=== PATIENT | male | born 1960 | race Caucasian/White ===

== ENCOUNTER 2018-10-24 12:09 | Emergency (ER) | payer OTHER ==
[~2018-10-24] VITALS: Ht 182.9 cm; Wt 86.2 kg
[~2018-10-24 12:09] MED LIST: fentaNYL INJECTION 100 MCG/2 ML AMP ONE
--- NOTE | 2018-10-24 12:23 | ED Trauma-Multisystem ---
General Stated Complaint: FALL Source of Information: Patient, EMS History of Present Illness Date Seen by Provider: Oct 24, 2018 Time Seen by Provider: 12:10 Initial Comments PT ARRIVES VIA EMS--+ CERVICAL COLLAR IN PLACE, SITTING UPRIGHT PT WAS WORKING ON A ROOF, AND SLIPPED ON A WASP SPRAY CAN, AND FELL 12-15 FEET OFF ROOF, HITTING HIS HEAD A DOG HOUSE/PEN HE FELL CO-WORKERS REPORT + LOSS OF CONSCIOUSNESS FOR APPROXIMATELY 3 MINUTES C/O SEVERE PAIN IN LUQ--IS ONLY COMPLAINT ON ARRIVAL TO ER EMS REPORT THAT IS BEGINNING TO C/O PAIN ALL ACROSS UPPER ABDOMEN ALSO C/O LOWER BACK PAIN--MORE ON LEFT--PER EMS C/O BILATERAL RIB PAIN--PER EMS NO SHORTNESS OF BREATH, JUST HURTS TO BREATHE NO EXTREMITY PAIN NO PARESTHESIAS OR MOTOR DEFICITS TXA WAS GIVEN BY EMS NO PAIN MEDICATION GIVEN BY EMS VITALS STABLE--BP IN 150'S SYSTOLIC, HR IN 90'S. LEVEL 1 TRAUMA ACTIVATION PRIOR TO PT'S ARRIVAL 0015--DR. PATHAK HERE, CARE TURNED OVER TO HIM PCP: DR. HEIN, [facility] Allergies and Home Medications Allergies Coded Allergies: No Known Drug Allergies (Unverified , 10/24/18) Home Medications Cyclobenzaprine HCl 10 Mg Tablet, 10 MG PO Q8H Prescribed by: CHELSEA DUDLEY on 10/24/18 1339 Hydrocodone Bit/Acetaminophen 1 Tab Tab, 1-2 EACH PO Q6H PRN for PAIN-MODERATE Prescribed by: CHELSEA DUDLEY on 10/24/18 1339 Tramadol HCl 50 Mg Tablet, 50 MG PO Q4H PRN for PAIN-MODERATE Prescribed by: CHELSEA DUDLEY on 10/24/18 1339 Patient Home Medication List Home Medication List Reviewed: Yes Review of Systems Review of Systems Constitutional: no symptoms reported Eyes: No Symptoms Reported Ears: No Symptoms Reported Nose: No Symptoms Reported Mouth: No Symptoms Reported Throat: No Symptoms to Report Respiratory: No cough, No short of breath Cardiovascular: No Symptoms Reported; Denies Chest Pain, Denies Edema, Denies Lightheadedness Gastrointestinal: see HPI, abdominal pain; No nausea, No vomiting Genitourinary: no symptoms reported Musculoskeletal: see HPI Skin: no symptoms reported (MINOR ABRASION TO BACK OF HEAD) Psychiatric/Neurological: See HPI; Denies Cognitive Dysfunction, Denies Numbness, Denies Tingling, Denies Weakness Past Dzvgaaw-Xrdqnt-Uwvmad Hx Patient Social History Alcohol Use: Occasionally Uses Recreational Drug Use: No Smoking Status: Never a Smoker Immunizations Up To Date Tetanus Booster (TDap): Unknown Past Medical History Surgeries: No Respiratory: No Cardiac: No Neurological: Yes (STATES HE TAKES A PILL "FOR PREVENTION FOR DEMENTIA" ) Genitourinary: No Gastrointestinal: No Musculoskeletal: No Endocrine: No HEENT: No Cancer: No Psychosocial: No Integumentary: No Blood Disorders: No Physical Exam Vital Signs Vital Signs - First Documented 10/24/18 12:15 Temp 36.69682 Pulse 76 Resp 24 B/P (MAP) 146/99 (115) Pulse Ox 98 O2 Delivery Room Air Height, Weight, BMI Height: '" Weight: lbs. oz. kg; BMI Method: General Appearance: Other (GUARDING LUQ) Head: Other (ABRASION TO OCCIPUT) Ears, Nose, Throat: Hearing Grossly Normal, No Evidence of ENT Injury, No Dental Injury Neck: Other (IN CERVICAL COLLAR) Cardiovascular: Regular Rate, Rhythm, No Edema, No JVD, No Murmur, Normal Peripheral Pulses Respiratory: Chest Non Tender, Normal Breath Sounds, No Accessory Muscle Use, No Respiratory Distress Gastrointestinal: Guarding (MARKED GUARDING OF LUQ), Tenderness (MARKED LUQ TENDERNESS, MODERATE RUQ TENDERNESS. ) Back: No CVA Tenderness, No Vertebral Tenderness Extremity: Normal Capillary Refill, Normal Inspection, Normal Range of Motion, Non Tender, No Calf Tenderness, No Pedal Edema Neurologic/Psychiatric: Alert, Oriented x3, No Motor/Sensory Deficits, Normal Mood/Affect, light truck driver II-XII Norm as Tested Skin: Normal Color, Warm/Dry [place] Coma Score Best Eye Response ([place]): (4) Open Spontaneously Best Verbal Response ([place]): (5) Oriented Best Motor Response ([place]): (6) Obeys Commands Holiday Total: 15 Focused Exam Lactate Level 10/24/18 12:24: Lactic Acid Level 1.50 Lactic Acid Level Laboratory Tests Test 10/24/18 12:24 Lactic Acid Level 1.50 MMOL/L (0.50-2.00) Progress/Results/Core Measures Results/Orders Lab Results Laboratory Tests Test 10/24/18 12:24 10/24/18 13:47 Range/Units White Blood Count 8.5 4.3-11.0 10^3/uL Red Blood Count 5.12 4.35-5.85 10^6/uL Hemoglobin 16.0 13.3-17.7 G/DL Hematocrit 45 40-54 % Mean Corpuscular Volume 89 80-99 FL Mean Corpuscular Hemoglobin 31 25-34 PG Mean Corpuscular Hemoglobin Concent 35 32-36 G/DL Red Cell Distribution Width 12.7 10.0-14.5 % Platelet Count 285 130-400 10^3/uL Mean Platelet Volume 10.1 7.4-10.4 FL Neutrophils (%) (Auto) 54 42-75 % Lymphocytes (%) (Auto) 35 12-44 % Monocytes (%) (Auto) 10 0-12 % Eosinophils (%) (Auto) 0 0-10 % Basophils (%) (Auto) 0 0-10 % Neutrophils # (Auto) 4.6 1.8-7.8 X 10^3 Lymphocytes # (Auto) 3.0 1.0-4.0 X 10^3 Monocytes # (Auto) 0.9 0.0-1.0 X 10^3 Eosinophils # (Auto) 0.0 0.0-0.3 10^3/uL Basophils # (Auto) 0.0 0.0-0.1 10^3/uL Prothrombin Time 12.7 12.2-14.7 SEC INR Comment 0.9 0.8-1.4 Activated Partial Thromboplast Time 28 24-35 SEC Fibrinogen 375 221-496 MG/DL D-Dimer 1.77 H 0.00-0.49 UG/ML Sodium Level 141 135-145 MMOL/L Potassium Level 4.1 3.6-5.0 MMOL/L Chloride Level 106 98-107 MMOL/L Carbon Dioxide Level 21 21-32 MMOL/L Anion Gap 14 5-14 MMOL/L Blood Urea Nitrogen 18 7-18 MG/DL Creatinine 1.27 0.60-1.30 MG/DL Estimat Glomerular Filtration Rate 58 BUN/Creatinine Ratio 14 Glucose Level 91 70-105 MG/DL Lactic Acid Level 1.50 0.50-2.00 MMOL/L Calcium Level 9.7 8.5-10.1 MG/DL Corrected Calcium 9.4 8.5-10.1 MG/DL Phosphorus Level 2.4 2.3-4.7 MG/DL Magnesium Level 2.0 1.6-2.4 MG/DL Total Bilirubin 1.0 0.1-1.0 MG/DL Direct Bilirubin 0.4 H 0.0-0.3 MG/DL Indirect Bilirubin 0.6 MG/DL Aspartate Amino Transf (AST/SGOT) 32 5-34 U/L Alanine Aminotransferase (ALT/SGPT) 35 0-55 U/L Alkaline Phosphatase 66 40-136 U/L Total Creatine Kinase 383 H 30-200 U/L Myoglobin 775.0 H 10.0-92.0 NG/ML Troponin I < 0.028 <0.028 NG/ML Total Protein 7.3 6.4-8.2 GM/DL Albumin 4.4 3.2-4.5 GM/DL Triglycerides Level 84 <150 MG/DL Cholesterol Level 160 < 200 MG/DL LDL Cholesterol Direct 105 1-129 MG/DL VLDL Cholesterol 17 5-40 MG/DL HDL Cholesterol 43 40-60 MG/DL Serum Alcohol < 10 <10 MG/DL Urine Color YELLOW Urine Clarity CLEAR Urine pH 6 5-9 Urine Specific [place] 1.005 L 1.016-1.022 Urine Protein 2+ H NEGATIVE Urine Glucose (UA) NEGATIVE NEGATIVE Urine Ketones NEGATIVE NEGATIVE Urine Nitrite NEGATIVE NEGATIVE Urine Bilirubin NEGATIVE NEGATIVE Urine Urobilinogen NORMAL NORMAL MG/DL Urine Leukocyte Esterase NEGATIVE NEGATIVE Urine RBC (Auto) 1+ H NEGATIVE Urine RBC 2-5 H /HPF Urine WBC NONE /HPF Urine Squamous Epithelial Cells 0-2 /HPF Urine Crystals NONE /LPF Urine Bacteria NEGATIVE /HPF Urine Casts NONE /LPF Urine Mucus NEGATIVE /LPF Urine Culture Indicated NO Urine Opiates Screen NEGATIVE NEGATIVE Urine Oxycodone Screen NEGATIVE NEGATIVE Urine Methadone Screen NEGATIVE NEGATIVE Urine Propoxyphene Screen NEGATIVE NEGATIVE Urine Barbiturates Screen NEGATIVE NEGATIVE Ur Tricyclic Antidepressants Screen NEGATIVE NEGATIVE Urine Phencyclidine Screen NEGATIVE NEGATIVE Urine Amphetamines Screen NEGATIVE NEGATIVE Urine Methamphetamines Screen NEGATIVE NEGATIVE Urine Benzodiazepines Screen NEGATIVE NEGATIVE Urine Cocaine Screen NEGATIVE NEGATIVE Urine Cannabinoids Screen NEGATIVE NEGATIVE My Orders Orders - CHELSEA DUDLEY DO Fentanyl Injection (Sublimaze Injection (10/24/18 12:07) Ct Head/Face/Cervical Wo (10/24/18 ) Ct Thoracic/Lumbar Spine Wo (10/24/18 ) Ct Chest/Abdomen/Pelvis W (10/24/18 ) Dipht,Pertuss(Acell),Tet Adult (Boostrix (10/24/18 12:30) Fibrin Degradation Products (10/24/18 12:24) Fibrinogen (10/24/18 12:24) Protime With Inr (10/24/18 12:24) Partial Thromboplastin Time (10/24/18 12:24) Alcohol (10/24/18 12:24) Cardiac Profile 1 (10/24/18 12:24) Creatine Kinase (10/24/18 12:24) Liver Panel (10/24/18 12:24) Magnesium (10/24/18 12:24) Phosphorus (10/24/18 12:24) Lactic Acid Analyzer (10/24/18 12:24) Red Cells Leukocytes Reduced (10/24/18 12:24) Type And Screen (10/24/18 12:24) Drug Screen Stat (Urine) (10/24/18 12:26) Urinalysis (10/24/18 12:26) Cbc With Automated Diff (10/24/18 12:24) Lipid Panel (10/24/18 12:24) Myoglobin Serum (10/24/18 12:24) Fentanyl Injection (Sublimaze Injection (10/24/18 13:30) Comprehensive Metabolic Panel (10/24/18 12:24) Ekg Tracing (10/24/18 13:02) Medications Given in ED Vital Signs/I&O 10/24/18 10/24/18 10/24/18 12:15 13:49 14:24 Temp 36.57502 36.27598 Pulse 76 76 Resp 24 18 B/P (MAP) 146/99 (115) 129/83 (98) Pulse Ox 98 98 O2 Delivery Room Air Room Air Room Air Progress Progress Note : Progress Note NO DETERIORATION IN PT'S CONDITION DURING ER STAY PT ABLE TO AMBULATE OUT OF ER Initial ECG Impression Date: Oct 24, 2018 Initial ECG Impression Time: 13:02 Initial ECG Rate: 71 Initial ECG Rhythm: Normal Sinus Diagnostic Imaging Comments CXR--CANCELLED BY DR. PATHAK ? PELVIS XRAY--CANCELLED BY DR. PATHAK ? CT HEAD/ MAXILLOFACIALS / CERVICAL SPINE--NO ACUTE INJURY OR PROCESS CT THORACIC/LUMBAR SPINE--FRACTURES OF LEFT TRANSVERSE PROCESSES L1-L4. NO SPINAL CANAL INVOLVEMENT OR OTHER ACUTE PROCESS CT CHEST/ ABDOMEN/ PELVIS--FRACTURES OF LEFT TRANSVERSE PROCESSES L1-L4. NO ACUTE INTRA-ABDOMINAL PROCESS ALL PER RADIOLOGIST REPORTS Reviewed: Reviewed by Sc Departure Communication (Admissions) [id number]--SPOKE WITH DR. PATHAK, HE ADVISES TO SEND PT HOME. Impression Primary Impression: Fall from roof as cause of accidental injury Additional Impressions: MULTIPLE LEFT LUMBAR TRANSVERSE PROCESS FRACTURES Closed head injury with brief loss of consciousness Abdominal wall contusion Dlnzzabwru-jrvhjaimx-uipzyma (DPT) vaccination administered at current visit Disposition: HOME, SELF-CARE Condition: Improved Departure-Patient Inst. Referrals: MEHRAN PATHAK DO Patient Instructions: Concussion, Adult (DC), Contusion (DC), Diphtheria and Tetanus Toxoids, and Acellular Pertussis Vaccine, Fracture (DC), How to Use an Incentive Spirometer, Skin Abrasions (DC) Add. Discharge Instructions: ICE TO SORE AREAS AT 20 MINUTE INTERVALS USE INCENTIVE SPIROMETRY EVERY HOUR FOLLOW UP WITH DR. PATHAK ON FRIDAY RETURN TO ER IF SYMPTOMS WORSEN Scripts Hydrocodone Bit/Acetaminophen (Hydrocodone/Acetaminophen 5/325mg Tablet) 1 Tab Tab 1-2 EACH PO Q6H PRN for PAIN-MODERATE MDD 10 for 3 Days, #20 TAB Prov: CHELSEA DUDLEY DO 10/24/18 Tramadol HCl (Ultram) 50 Mg Tablet 50 MG PO Q4H PRN for PAIN-MODERATE for 3 Days, TAB Prov: CHELSEA DUDLEY DO 10/24/18 Cyclobenzaprine HCl (Cyclobenzaprine HCl) 10 Mg Tablet 10 MG PO Q8H, #15 TAB Prov: CHELSEA DUDLEY DO 10/24/18 CHELSEA DUDLEY DO Oct 24, 2018 12:23
[2018-10-24] MEDS ORDERED: TETANUS,DIPTH,PERTUSS P/F (BOOSTRIX) 0.5 ML VIAL IM ONE (12:30)
[2018-10-24 12:32] LABS: BASOPHILS % (AUTO) 0 % (0-10); EOSINOPHILS % (AUTO) 0 % (0-10); HEMATOCRIT 45 % (40-54); LYMPHOCYTES % (AUTO) 35 % (12-44); MEAN CORPUSCULAR HEMOGLOBIN 31 PG (25-34); MEAN CORPUSCULAR HGB CONC 35 G/DL (32-36); MEAN CORPUSCULAR VOLUME 89 FL (80-99); MEAN PLATELET VOLUME 10.1 FL (7.4-10.4); MONOCYTES # (AUTO) 0.9 X 10^3 (0.0-1.0); MONOCYTES % (AUTO) 10 % (0-12); NEUTROPHILS # (AUTO) 4.6 X 10^3 (1.8-7.8); NEUTROPHILS % (AUTO) 54 % (42-75); PLATELET COUNT 285 10^3/uL (130-400); RED CELL DISTRIBUTION WIDTH 12.7 % (10.0-14.5); WHITE BLOOD COUNT 8.5 10^3/uL (4.3-11.0)
[2018-10-24 12:42] LABS: FIBRIN DEGRADATION PRODUCTS 1.77 UG/ML (0.00-0.49); INR 0.9 (0.8-1.4); PROTHROMBIN TIME PATIENT 12.7 SEC (12.2-14.7)
[2018-10-24 12:49] LABS: ALANINE AMINOTRANSFERASE 35 U/L (0-55); ALBUMIN 4.4 GM/DL (3.2-4.5); ALKALINE PHOSPHATASE 66 U/L (40-136); BILIRUBIN,DIRECT 0.4 MG/DL (0.0-0.3); BILIRUBIN,INDIRECT 0.6 MG/DL; CHOLESTEROL 160 MG/DL (< 200); CREATINE KINASE 383 U/L (30-200); HDL CHOLESTEROL 43 MG/DL (40-60); PHOSPHORUS 2.4 MG/DL (2.3-4.7); TOTAL PROTEIN 7.3 GM/DL (6.4-8.2); TRIGLYCERIDES 84 MG/DL (<150); VLDL CHOLESTEROL 17 MG/DL (5-40)
--- NOTE | 2018-10-24 12:49 | Diagnostic Imaging Report ---
PROCEDURE: CT head, face, and cervical spine without contrast. TECHNIQUE: Multiple contiguous axial images were obtained through the head, neck, and facial bones without the use of intravenous contrast. Sagittal and coronal reformations through the cervical spine and facial bones were also performed. Auto Exposure Controls were utilized during the CT exam to meet ALARA standards for radiation dose reduction. INDICATION: Fall from 15 feet. Loss of consciousness. COMPARISON: None. FINDINGS: CT head: The ventricles and cortical sulci are age-appropriate. There is no midline shift or mass-effect. No acute intracranial hemorrhage is seen. There is no CT evidence of acute territorial ischemia. No focal masses or collections are present. The calvarium is intact. CT face: No acute facial fractures are identified. The mandible, zygomatic arches, and pterygoid plates are intact. The bilateral TMJ demonstrate normal articulation. The nasal bones and bony nasal septum demonstrate no acute fracture. A small mucus retention cyst is seen in the left maxillary sinus. Otherwise, the paranasal sinuses and mastoid air cells are well pneumatized. CT cervical spine: No acute fracture or dislocation is seen in the cervical spine. No focal osseous lesions. Vertebral body heights are well-maintained. The craniocervical junction is well-maintained. Mild degenerative changes are seen in the cervical spine with disc osteophyte complexes and uncovertebral arthropathy. Soft tissues of the neck are unremarkable. IMPRESSION: 1. No hemorrhage or focal intra-axial mass. No CT evidence of large acute territorial ischemia. 2. No acute fracture or dislocation in the cervical spine. 3. No acute facial fractures. Dictated by: Dictated on workstation # [id number]
--- NOTE | 2018-10-24 13:02 | Diagnostic Imaging Report ---
PROCEDURE: CT thoracic and lumbar spine without contrast. TECHNIQUE: Multiple contiguous axial images were obtained through the thoracic and lumbar spine without the use of intravenous contrast. Sagittal and coronal reformations were then performed. INDICATION: Fall from 15 feet. Back pain. COMPARISON: None. FINDINGS: Minimally displaced fractures are seen involving the left transverse processes of L1 through L4. No vertebral body fractures or dislocation are identified. Vertebral body heights are well-maintained in the thoracic and lumbar spine. No evidence of displaced rib fracture is seen. Alignment is anatomic in the thoracic and lumbar spine. No focal osseous lesions. Please see the separately dictated report on the CT chest, abdomen and pelvis for soft tissue findings. IMPRESSION: Minimally displaced fractures involving the left transverse processes of L1 through L4. No vertebral body fractures or dislocation in the thoracic and lumbar spine. Alignment is anatomic. Dictated by: Dictated on workstation # [id number]
--- NOTE | 2018-10-24 13:15 | Diagnostic Imaging Report ---
PROCEDURE: CT chest, abdomen, and pelvis with contrast. TECHNIQUE: Multiple contiguous axial images were obtained through the chest, abdomen, and pelvis after the administration of intravenous contrast. Auto Exposure Controls were utilized during the CT exam to meet ALARA standards for radiation dose reduction. INDICATION: Fall from 15 feet. Left-sided abdominal pain. COMPARISON: None. CT chest: The heart size is within normal limits. No pericardial effusion is present. The thoracic aorta is unremarkable without evidence of aneurysm or dissection. No pulmonary emboli are seen. There is no mediastinal, hilar, or axillary lymphadenopathy. Minimal dependent atelectasis is present in the lung bases. No focal consolidation or mass. No suspicious pulmonary nodules. No central endobronchial obstructing lesions. No pleural effusion or pneumothorax. The osseous structures demonstrate degenerative changes without focal lytic or blastic lesions. CT abdomen: The liver, spleen, pancreas, adrenal glands, and kidneys have a normal appearance. There is no pathologically enlarged mesenteric or retroperitoneal adenopathy. The bowel loops are nondilated. The appendix is visualized in the right lower quadrant has a normal appearance. There is no free fluid or free air. There is calcified aortic and iliac atherosclerotic plaque. Focal outpouching is seen in the proximal left common iliac artery measuring 0.7 x 0.7 cm (image 87, series 2). No evidence of dissection. Again noted are fractures involving the first through fourth left transverse processes. No other acute fractures are identified in the abdomen and pelvis. Ureters and bladder are grossly normal. There is no free air, loculated collection, or adenopathy in the pelvis. IMPRESSION: 1. No pneumothorax or pleural effusion in the chest. No pulmonary lacerations. No acute displaced rib fractures. 2. No free fluid or free air in the abdomen and pelvis. No evidence of bowel obstruction or solid organ injury. 3. 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 This represents an incidental finding and can be followed with CTA abdomen and pelvis in 6-12 months. 4. Fractures involving the first through fourth left transverse processes. No other acute fractures are visualized. Dictated by: Dictated on workstation # [id number]
[2018-10-24] MEDS ORDERED: fentaNYL INJECTION 100 MCG/2 ML AMP IVP ONE (13:30)
[2018-10-24] MEDS ORDERED: ACHD5005 PO (13:39)
[2018-10-24] MEDS ORDERED: TRAM-42 PO (13:39)
[2018-10-24] MEDS ORDERED: CYCL10TA9 PO (13:39)
--- NOTE | 2018-10-24 13:40 | Consultation - Surgery ---
History of Present Illness History of Present Illness Patient Consulted On(saadia/time) 10/24/18 13:32 Time Seen by Provider: 12:14 History of Present Illness Type I Trauma Activation, Pt fell 15 feet off of roof. I arrived in ER shortly after pt did. HPI per ED: PT ARRIVES VIA EMS--+ CERVICAL COLLAR IN PLACE, SITTING UPRIGHT PT WAS WORKING ON A ROOF, AND SLIPPED ON A WASP SPRAY CAN, AND FELL 12-15 FEET OFF ROOF, HITTING HIS HEAD A DOG HOUSE/PEN HE FELL CO-WORKERS REPORT + LOSS OF CONSCIOUSNESS FOR APPROXIMATELY 3 MINUTES,C/O SEVERE PAIN IN LUQ--IS ONLY COMPLAINT ON ARRIVAL TO ER EMS REPORT THAT IS BEGINNING TO C/O PAIN ALL ACROSS UPPER ABDOMEN, ALSO C/O LOW ER BACK PAIN--MORE ON LEFT--PER EMS C/O BILATERAL RIB PAIN--PER EMS, NO SHORTNESS OF BREATH, JUST HURTS TO BREATHE, NO EXTREMITY PAIN, NO PARESTHESIAS OR MOTOR DEFICITS TXA WAS GIVEN BY EMS NO PAIN MEDICATION GIVEN BY EMS VITALS STABLE--BP IN 150'S SYSTOLIC, HR IN 90'S. LEVEL 1 TRAUMA ACTIVATION PRIOR TO PT'S ARRIVAL In the ER pt's main complaint was of LUQ and EMS stated it was getting worse during the ride and he was guarding. Pt also complained of some low back pain, denied head pain. + LOC "I was told for 2-3 minutes". Pt rated abdominal pain as 10 out of 10. Pt was moving all 4 extremities. Allergies and Home Medications Allergies Coded Allergies: No Known Drug Allergies (Unverified , 10/24/18) Patient Home Medication List Home Medication List Reviewed: Yes Past Njrlmhi-Nthrxn-Ucxwag Hx Patient Social History Alcohol Use: Occasionally Uses Recreational Drug Use: No Smoking Status: Never a Smoker 2nd Hand Smoke Exposure: No Recent Foreign Travel: No Contact w/Someone Who Travel: No Recent Infectious Disease Expo: No Recent Hopitalizations: No Immunizations Up To Date Tetanus Booster (TDap): Unknown Seasonal Allergies Seasonal Allergies: No Surgeries History of Surgeries: No Surgeries: Vasectomy Respiratory History of Respiratory Disorde: No Cardiovascular History of Cardiac Disorders: No Cardiac Disorders: Hypertension Neurological History of Neurological Disord: Yes (STATES HE TAKES A PILL "FOR PREVENTION FOR DEMENTIA" ) Genitourinary History of Genitourinary Disor: No Gastrointestinal History of Gastrointestinal Di: No Musculoskeletal History of Musculoskeletal Dis: No Endocrine History of Endocrine Disorders: No HEENT History of HEENT Disorders: No Cancer History of Cancer: No Psychosocial History of Psychiatric Problem: No Integumentary History of Skin or Integumenta: No Blood Transfusions History of Blood Disorders: No Family Medical History Significant Family History: Hypertension Review of Systems-General Constitutional: No chills, No diaphoresis, No dizziness, No weakness EENTM: No blurred vision, No mouth pain, No mouth swelling, No epistaxis Respiratory: No cough, No dyspnea on exertion, No hemoptysis, No short of breath Cardiovascular: No chest pain, No edema, No palpitations Gastrointestinal: abdominal pain (LUQ); No jaundice, No nausea, No vomiting Genitourinary: No dysuria, No frequency, No hematuria Musculoskeletal: back pain, muscle pain, muscle stiffness Skin: No change in color, No change in hair/nails Psychiatric/Neurological: Denies Anxiety, Denies Depressed, Denies Seizure, Denies Tremors Other Pt denies any abnormal bleeding or bruising Physical Exam-General Problems Physical Exam Vital Signs Capillary Refill : General Appearance: WD/WN, moderate distress Eyes: Bilateral Eye PERRL, Bilateral Eye EOMI HEENT: pharynx normal; No scleral icterus (R), No scleral icterus (L); other (abrasion posterior head) Neck: supple, other (C-collar in place) Respiratory: chest non-tender, lungs clear, normal breath sounds, no respiratory distress, no accessory muscle use Cardiovascular: regular rate, rhythm, no murmur Gastrointestinal: normal bowel sounds, soft, no organomegaly, no pulsatile mass, guarding (voluntary LUQ), tenderness (LUQ), hernia (umbilical) Back: CVA tenderness (L), vertebral tenderness (lumbar region) Extremities: normal range of motion, non-tender, no pedal edema, no calf tenderness, normal capillary refill 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, no motor/sensory deficits, alert, normal mood/affect, oriented x 3 Skin: normal color, warm/dry Lymphatic: no adenopathy (neck, axilla or groin) Data Review Labs Laboratory Tests 10/24/18 12:24: White Blood Count 8.5, Red Blood Count 5.12, Hemoglobin 16.0, Hematocrit 45, Mean Corpuscular Volume 89, Mean Corpuscular Hemoglobin 31, Mean Corpuscular Hemoglobin Concent 35, Red Cell Distribution Width 12.7, Platelet Count 285, Mean Platelet Volume 10.1, Neutrophils (%) (Auto) 54, Lymphocytes (%) (Auto) 35, Monocytes (%) (Auto) 10, Eosinophils (%) (Auto) 0, Basophils (%) (Auto) 0, Neutrophils # (Auto) 4.6, Lymphocytes # (Auto) 3.0, Monocytes # (Auto) 0.9, Eosinophils # (Auto) 0.0, Basophils # (Auto) 0.0, Prothrombin Time 12.7, INR Comment 0.9, Activated Partial Thromboplast Time 28, Fibrinogen 375, D-Dimer 1.77H, Lactic Acid Level 1.50, Phosphorus Level 2.4, Magnesium Level 2.0, Total Bilirubin 1.0, Direct Bilirubin 0.4H, Indirect Bilirubin 0.6, Aspartate Amino Transf (AST/SGOT) 32, Alanine Aminotransferase (ALT/SGPT) 35, Alkaline Phosphatase 66, Total Creatine Kinase 383H, Myoglobin 775.0H, Troponin I < 0.028, Total Protein 7.3, Albumin 4.4, Triglycerides Level 84, Cholesterol Level 160, LDL Cholesterol Direct 105, VLDL Cholesterol 17, HDL Cholesterol 43, Serum Alcohol < 10 Assessment/Plan Assessment/Plan Assessment/Plan Trauma Type I activation, fall from 15 feet Concussion with LOC L1-L4 Left transverse process Fx I went with pt to CT scanner and looked at films; no solid organ injury. Pt did have some transverse process fractures. Pt can be sent home with IS, Neuro checks for 10 hours and pain meds. No need for surgical intervention at this time. Pt can follow up in my clinic if needed. MEHRAN PATHAK DO Oct 24, 2018 13:40
[2018-10-24 13:57] LABS: BILIRUBIN,URINE NEGATIVE (NEGATIVE); CLARITY,URINE CLEAR; COLOR,URINE YELLOW; GLUCOSE, URINE (UA) NEGATIVE (NEGATIVE); KETONES,URINE NEGATIVE (NEGATIVE); LEUKOCYTE ESTERASE ,URINE NEGATIVE (NEGATIVE); NITRITE,URINE NEGATIVE (NEGATIVE); PH,URINE 6 (5-9); PROTEIN,URINE 2+ (NEGATIVE); UROBILINOGEN,URINE NORMAL (NORMAL)
[2018-10-24 14:06] LABS: BACTERIA,URINE NEGATIVE /HPF; SQUAMOUS EPITHELIAL CELL,UR 0-2 /HPF
[2018-10-24 14:13] LABS: AMPHETAMINE SCREEN, URINE NEGATIVE (NEGATIVE); BARBITURATE SCREEN URINE NEGATIVE (NEGATIVE); BENZODIAZEPINES SCREEN URINE NEGATIVE (NEGATIVE); CANNABINOID SCREEN, URINE NEGATIVE (NEGATIVE); COCAINE SCREEN URINE NEGATIVE (NEGATIVE); METHADONE STAT NEGATIVE (NEGATIVE); METHAMPHETAMINE SCREEN URINE S NEGATIVE (NEGATIVE); OPIATE SCREEN URINE NEGATIVE (NEGATIVE); OXYCODONE STAT NEGATIVE (NEGATIVE); PROPOXYPHENE STAT NEGATIVE (NEGATIVE); TRICYCLIC ANTIDEPRESSANTS SCRE NEGATIVE (NEGATIVE)
--- NOTE | 2018-10-24 14:20 | NUR ---
Pt arrived to ED via EMS at 1210. 1 liter NS running upon arrival. Pt has bilat hand 18 guage IV's. Pt fell approx 10 feet from roof and reportedly hit head on dog pen. Pt guarding RUQ and LUQ. Pt c/o pain upon inspiration. ETCO2 [address] pt log rolled by Dr. Ureña and staff, no cervical/spine pain noted 1215 warm LR started by Adelaida RN 1217 75 mcg fentanyl given by house sup [address]
[2018-10-24 14:24] VITALS: BP 129/83
[2018-10-24 14:40] LABS: BUN/CREATININE RATIO 14; CALCIUM 9.7 MG/DL (8.5-10.1); CARBON DIOXIDE 21 MMOL/L (21-32); CHLORIDE 106 MMOL/L (98-107); CREATININE SERUM 1.27 MG/DL (0.60-1.30); GFR ESTIMATED 58; GLUCOSE 91 MG/DL (70-105); POTASSIUM 4.1 MMOL/L (3.6-5.0); SODIUM 141 MMOL/L (135-145)
== END 2018-10-24 14:24 | disposition home or self-care (01) ==
LOC: EDUNIT# 12:09 → ER 12:10
DX: S06.0X1A Concussion with loss of consciousness of 30 minutes or less, initial encounter (principal); S32.018A Other fracture of first lumbar vertebra, initial encounter for closed fracture; S32.048A Other fracture of fourth lumbar vertebra, initial encounter for closed fracture; S30.1XXA Contusion of abdominal wall, initial encounter; F03.90 Unspecified dementia, unspecified severity, without behavioral disturbance, psychotic disturbance, mood disturbance, and anxiety; R40.2142 Coma scale, eyes open, spontaneous, at arrival to emergency department; R40.2252 Coma scale, best verbal response, oriented, at arrival to emergency department; R40.2362 Coma scale, best motor response, obeys commands, at arrival to emergency department; Z23 Encounter for immunization; W13.2XXA Fall from, out of or through roof, initial encounter
CPT/HCPCS: 36415; 70450; 70486; 71260; 72125; 72128; 72131; 74177; 80053; 80061; 80076; 80306; 80320; 81000; 82550; 83605; 83735; 83874; 84100; 84484; 85025; 85379; 85384; 85610; 85730; 86850; 86900; 86901; 86920; 90471; 90715; 93005; 96374

== ENCOUNTER → 2019-05-04 | Outpatient (CLI) | payer OTHER ==
[~2019-05-04] MED LIST changes: +ACHD5005 PO; +CYCL10TA9 PO; +TRAM-42 PO; -fentaNYL INJECTION 100 MCG/2 ML AMP ONE
--- NOTE | 2019-05-04 08:34 | Diagnostic Imaging Report ---
PROCEDURE: CT abdomen and pelvis without contrast. TECHNIQUE: Multiple contiguous axial images were obtained through the abdomen and pelvis without the use of intravenous contrast. Auto Exposure Controls were utilized during the CT exam to meet ALARA standards for radiation dose reduction. 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 Asymptomatic. COMPARISON: 10/24/2018. FINDINGS: The heart is unremarkable. The included lung bases are clear. Given the noncontrast exam, evaluation of the previously visualized aneurysmal dilation of the proximal left common iliac artery is suboptimal. However, this appears largely unchanged with evidence of impending rupture. No new aneurysmal dilation is seen in the abdominal aorta or right iliac artery. Scattered calcified atherosclerotic plaque is again noted. The liver, spleen, pancreas, adrenal glands, and kidneys have a normal noncontrast CT appearance. There is no pathologically enlarged mesenteric or retroperitoneal adenopathy. The bowel loops are nondilated. The appendix is visualized in the right lower quadrant and has a normal appearance. There is no free fluid or free air. There has been interval healing of the fractures of the 1st through 4th left transverse processes in the lumbar spine. No acute osseous abnormalities. The bladder is nondistended. There is no free air, loculated collection, or adenopathy in the pelvis. IMPRESSION: 1. Suboptimal evaluation of the focal aneurysmal dilation of the proximal left common iliac artery given the noncontrast study. Within these limitations, no findings to suggest impending rupture. No new aneurysmal formation is seen involving the abdominal aorta or right iliac arteries. Again noted is a small amount of atherosclerotic plaque involving the aorta and bilateral iliac arteries. 2. No acute abnormalities are visualized in the abdomen and pelvis. 3. Interval healing of the left transverse processes at the L1-L4 levels. No acute osseous abnormalities. Dictated by: Dictated on workstation # [id number]
== END ==
LOC: RAD 07:47
PROVIDERS: ATTEND Nurse Practitioner
DX: I70.0 Atherosclerosis of aorta (principal); I70.8 Atherosclerosis of other arteries; I71.9 Aortic aneurysm of unspecified site, without rupture
CPT/HCPCS: 74176